=== PATIENT | male | born 1985 | race African-American/Black ===

== ENCOUNTER 2018-01-06 08:41 | Emergency (ER) | payer SELFPAY ==
[~2018-01-06] VITALS: Ht 177.8 cm; Wt 83.9 kg
[2018-01-06 08:48] VITALS: BP 140/70; PULSE 106; TEMP 98.3
[2018-01-06] MEDS ORDERED: SEROQUEL50 MG PO (08:54)
[2018-01-06] MEDS ORDERED: LATUDA20 MG PO (08:57)
[2018-01-06] MEDS ORDERED: DEPAKOTE 250MG250 MG PO (08:57)
[2018-01-06] MEDS ORDERED: PRINIVIL10 MG PO (08:58)
[2018-01-06] MEDS ORDERED: ATIVAN 0.50.5 MG/TAB PO (08:58)
[2018-01-06] MEDS ORDERED: DOXYCYCLINE 10100 MG PO (09:34)
== END 2018-01-06 10:10 | disposition home or self-care (01) ==
LOC: COL.ER 08:41 → EDBD 08:43 → COL.ER 10:10
DX: L02.31 Cutaneous abscess of buttock (principal); F17.210 Nicotine dependence, cigarettes, uncomplicated; Z88.0 Allergy status to penicillin